=== PATIENT | male | born 1985 | race Caucasian/White ===

== ENCOUNTER 2019-12-10 10:46 | Emergency (ER) | payer SELFPAY ==
[~2019-12-10] VITALS: Ht 162.6 cm; Wt 75.3 kg
[2019-12-10 10:59] VITALS: Ht 162.6 cm; Wt 75.3 kg
[2019-12-10 11:41] VITALS: BP 126/77
== END 2019-12-10 11:41 | disposition home or self-care (01) ==
LOC: ED 10:46
DX: B34.9 Viral infection, unspecified (principal)